=== PATIENT | male | born 1945 | race Caucasian/White ===

== ENCOUNTER 2017-03-07 08:18 | Emergency (ER) | payer MEDICARE, OTHER ==
[~2017-03-07] VITALS: Ht 185.4 cm; Wt 83.5 kg
[~2017-03-07 08:18] MED LIST: AMLO5TAB4 PO; ASPI-482 PO; CIPR500T PO; LISI-334 PO; MECL12.5 PO; RANI150T6 PO
[2017-03-07] MEDS ORDERED: ONDANSETRON ODT 4 MG TAB.RAPDIS. PO ONE (08:45)
--- NOTE | 2017-03-07 08:52 | PHYS DOC ---
Past Medical History Past Medical History: Hypertension, Other Additional Past Medical Histor: ENLARGED PROSTATE Past Surgical History: No Surgical History Alcohol Use: None Drug Use: None Adult General Chief Complaint Chief Complaint: DIZZY/LIGHT HEADED HPI HPI Patient is a 71 year old male presents to the emergency department with a history of labyrinthitis. Patient states he bent down 2-3 days ago and became dizzy. He states he has been taking meclizine with some relief although now he has become nauseated and vomited twice. He denies fever, chills, chest pain or discomfort. Review of Systems Review of Systems Constitutional: Denies fever or chills [] Eyes: Denies change in visual acuity, redness, or eye pain [] HENT: Denies nasal congestion or sore throat [] Respiratory: Denies cough or shortness of breath [] Cardiovascular: No additional information not addressed in HPI [] GI: Denies abdominal pain, bloody stools or diarrhea C/o nausea and vomiting : Denies dysuria or hematuria [] Musculoskeletal: Denies back pain or joint pain [] Integument: Denies rash or skin lesions [] Neurologic: Denies headache, focal weakness or sensory changes. C/o dizziness Endocrine: Denies polyuria or polydipsia [] Current Medications Current Medications Current Medications Medications (Trade) Dose Ordered Sig/Francisco Start Time Stop Time Status Last Admin Dose Admin Ondansetron HCl (Zofran Odt) 4 mg 1X ONCE 03/07/17 08:45 03/07/17 08:46 DC Allergies Allergies Allergies Coded Allergies Type Severity Reaction Last Updated Verified No Known Drug Allergies 05/18/15 No Physical Exam Physical Exam Constitutional: Well developed, well nourished, no acute distress, non-toxic appearance. [] HENT: Normocephalic, atraumatic, bilateral external ears normal, oropharynx moist, no oral exudates, nose normal. [] Eyes: PERRLA, EOMI, conjunctiva normal, no discharge. [] Neck: Normal range of motion, no tenderness, supple, no stridor. [] Cardiovascular:Heart rate regular rhythm, no murmur [] Lungs & Thorax: Bilateral breath sounds clear to auscultation [] Abdomen: Bowel sounds normal, soft, no tenderness, no masses, no pulsatile masses. [] Skin: Warm, dry, no erythema, no rash. [] Back: No tenderness Extremities: No tenderness, no cyanosis, no clubbing, ROM intact, no edema. [] Neurologic: Alert and oriented X 3, normal motor function, normal sensory function, no focal deficits noted. Cranial nerve II-XII patient with unsteadiness noted. Psychologic: Affect normal, judgement normal, mood normal. [] Current Patient Data Vital Signs Vital Signs Date Time Temp Pulse Resp B/P (MAP) Pulse Ox O2 Delivery O2 Flow Rate FiO2 03/07/17 08:29 97.6 58 16 156/82 (106) 97 Room Air 97.6 Lab Values Laboratory Tests Test 03/07/17 08:45 White Blood Count 9.8 x10^3/uL (4.0-11.0) Red Blood Count 5.27 x10^6/uL (4.30-5.70) Hemoglobin 16.3 g/dL (13.0-17.5) Hematocrit 47.2 % (39.0-53.0) Mean Corpuscular Volume 90 fL (79-100) Mean Corpuscular Hemoglobin 31 pg (25-35) Mean Corpuscular Hemoglobin Concent 35 g/dL (31-37) Red Cell Distribution Width 14.3 % (11.5-14.5) Platelet Count 247 x10^3/uL (140-400) Neutrophils (%) (Auto) 71 % (31-73) Lymphocytes (%) (Auto) 20 % (24-48) L Monocytes (%) (Auto) 7 % (0-9) Eosinophils (%) (Auto) 2 % (0-3) Basophils (%) (Auto) 0 % (0-3) Neutrophils # (Auto) 6.9 x10^3uL (1.8-7.7) Lymphocytes # (Auto) 1.9 x10^3/uL (1.0-4.8) Monocytes # (Auto) 0.7 x10^3/uL (0.0-1.1) Eosinophils # (Auto) 0.2 x10^3/uL (0.0-0.7) Basophils # (Auto) 0.0 x10^3/uL (0.0-0.2) Sodium Level 138 mmol/L (136-145) Potassium Level 4.2 mmol/L (3.5-5.1) Chloride Level 101 mmol/L (98-107) Carbon Dioxide Level 30 mmol/L (21-32) Anion Gap 7 (6-14) Blood Urea Nitrogen 20 mg/dL (8-26) Creatinine 1.0 mg/dL (0.7-1.3) Estimated GFR (Cockcroft-Gault) 73.2 BUN/Creatinine Ratio 20 (6-20) Glucose Level 109 mg/dL (70-99) H Calcium Level 8.9 mg/dL (8.5-10.1) Total Bilirubin 1.0 mg/dL (0.2-1.0) Aspartate Amino Transferase (AST) 24 U/L (15-37) Alanine Aminotransferase (ALT) 30 U/L (16-63) Alkaline Phosphatase 82 U/L (46-116) Troponin I Quantitative < 0.017 ng/mL (0.000-0.055) Total Protein 7.8 g/dL (6.4-8.2) Albumin 3.7 g/dL (3.4-5.0) Albumin/Globulin Ratio 0.9 (1.0-1.7) L Laboratory Tests 03/07/17 08:45 Laboratory Tests 03/07/17 08:45 EKG EKG EKG completed at 0835 HR 57 with SR noted per Dr Blanco no STEMI noted[] Radiology/Procedures Radiology/Procedures [facility] [address] [place] [address] IMAGING REPORT Signed PATIENT: RASHIDA NAIDU ACCOUNT: [id number] : 1945 LOCATION: ER AGE: 71 SEX: M EXAM STATUS: PRE ER ORD. PHYSICIAN: GT CARVAJAL APRN REASON: dizziness PROCEDURE: CT HEAD WO CONTRAST CT of the head without contrast, 03/07/2017: History: Dizziness Comparison is made to a study from 04/28/2015. There is mild cerebral atrophy. The ventricles are within normal limits in size. There is no shift of the midline structures. There is no evidence of acute intracranial hemorrhage or mass effect. There are several faint deep white matter lucencies bilaterally compatible with chronic ischemic change. Again noted is poor aeration of the right mastoid air cells with a small bony defect, presumably on a postsurgical basis. There is only minimal opacification of the inferior aspect of the left mastoid sinus. IMPRESSION: No acute intracranial abnormality is detected. PQRS Compliance Statement: One or more of the following individualized dose reduction techniques were utilized for this examination: 1. Automated exposure control 2. Adjustment of the mA and/or kV according to patient size 3. Use of iterative reconstruction technique DICTATED and SIGNED BY: EVERETT LAWRENEC MD DATE: 03/07/1707 CC: GT CARVAJAL APRN; BROOKE FORD ~ [] Course & Med Decision Making Course & Med Decision Making Pertinent Labs and Imaging studies reviewed. (See chart for details) CBC, CMP, troponin and EKG normal, CT scan normal. These results provided with patient. Patient states his dizziness and nausea feeling is much better. Patient states, "Can I leave here and go eat?" Patient will be discharged home in stable condition, he will be provided with prescription of Zofran. He will continue with the meclizine. Recommendation to followup with primary care provider in 3-5 days. Signs and symptoms to return to the emergency department has been provided. Patient agrees with discharge instructions, treatment regimen and followup recommendations. Patient with redness to the right upper back that is a dime size with no drainage or discharge noted. Recommended keeping the area clean and dry and apply antibiotic ointment over the site twice a day. [] Dragon Disclaimer Dragon Disclaimer This electronic medical record was generated, in whole or in part, using a voice recognition dictation system. Departure Departure Impression: Primary Impression: Acute labyrinthitis Disposition: 01 HOME, SELF-CARE Condition: STABLE Referrals: BROOKE FORD (PCP) Patient Instructions: Labyrinthitis (Inner Ear Inflammation)-Brief Additional Instructions: Activity as tolerated Medication as prescribed Drink plenty of fluids Followup with your primary care provider in 3-5 days Return to emergency department as needed for signs and symptoms that become worse. Scripts Ondansetron (ZOFRAN ODT) 4 Mg Tab.rapdis 1 TAB SL Q8HRS, #10 TAB Prov: GT CARVAJAL APRN 03/07/17 GT CARVAJAL APRN Mar 07, 2017 08:52
[2017-03-07 09:06] LABS: BASO % 0 % (0-3); EOS % 2 % (0-3); HEMATOCRIT 47.2 % (39.0-53.0); HEMOGLOBIN 16.3 g/dL (13.0-17.5); LYMPH # 1.9 x10^3/uL (1.0-4.8); LYMPH % 20 % (24-48); MEAN CORPUSCULAR HEMOGLOBIN 31 pg (25-35); MEAN CORPUSCULAR HGB CONC 35 g/dL (31-37); MEAN CORPUSCULAR VOLUME 90 fL (79-100); MONO % 7 % (0-9); NEUT % 71 % (31-73); PLATELET COUNT 247 x10^3/uL (140-400); RED BLOOD COUNT 5.27 x10^6/uL (4.30-5.70); RED CELL DISTRIBUTION WIDTH 14.3 % (11.5-14.5); WHITE BLOOD COUNT 9.8 x10^3/uL (4.0-11.0)
[2017-03-07 09:07] LABS: CALCIUM 8.9 mg/dL (8.5-10.1); GFR 73.2; POTASSIUM 4.2 mmol/L (3.5-5.1)
[2017-03-07 09:12] LABS: ALBUMIN 3.7 g/dL (3.4-5.0); ALBUMIN/GLOBULIN RATIO 0.9 (1.0-1.7); TOTAL PROTEIN 7.8 g/dL (6.4-8.2)
--- NOTE | 2017-03-07 09:14 | RAD ---
CT of the head without contrast, 03/07/2017: History: Dizziness Comparison is made to a study from 04/28/2015. There is mild cerebral atrophy. The ventricles are within normal limits in size. There is no shift of the midline structures. There is no evidence of acute intracranial hemorrhage or mass effect. There are several faint deep white matter lucencies bilaterally compatible with chronic ischemic change. Again noted is poor aeration of the right mastoid air cells with a small bony defect, presumably on a postsurgical basis. There is only minimal opacification of the inferior aspect of the left mastoid sinus. IMPRESSION: No acute intracranial abnormality is detected. PQRS Compliance Statement: One or more of the following individualized dose reduction techniques were utilized for this examination: 1. Automated exposure control 2. Adjustment of the mA and/or kV according to patient size 3. Use of iterative reconstruction technique
[2017-03-07 09:30] VITALS: BP 133/95
[2017-03-07] MEDS ORDERED: ONDA4TAB10 SL (09:37)
--- NOTE | 2017-03-07 11:02 | EKG ---
[facility] [address] [place] [address] Test Date: 2017-03-07 Test Time: 08:35:53 Pat Name: RASHIDA NAIDU Department: Room: Gender: M [employer] Machine Operator: : 1945 Requested By: GT CARVAJAL Order Number: [id number] Reading MD: Cynthia Ogden Measurements Intervals [place] Rate: 57 P: 42 MI: 186 QRS: 1 QRSD: 96 T: 2 QT: 388 QTc: 380 Interpretive Statements SINUS RHYTHM QRS(T) CONTOUR ABNORMALITY CONSISTENT WITH INFERIOR INFARCT AGE UNDETERMINED RI6.01 Unconfirmed report Compared to ECG 05/16/2015 08:51:08 Myocardial infarct finding now present Electronically Signed On 03-09-2017 22:34:49 CDT by Cynthia Ogden
== END 2017-03-07 09:57 | disposition home or self-care (01) ==
LOC: ER 08:18
DX: H83.09 Labyrinthitis, unspecified ear (principal); I10 Essential (primary) hypertension; N40.0 Benign prostatic hyperplasia without lower urinary tract symptoms
CPT/HCPCS: 36415; 70450; 80053; 84484; 85027; 93005; 99285; Q0162

== ENCOUNTER 2019-02-23 09:24 | Emergency (ER) | payer MEDICARE, OTHER ==
[~2019-02-23] VITALS: Ht 185.4 cm; Wt 83.5 kg
[~2019-02-23 09:24] MED LIST changes: +ONDA4TAB10 SL; +RANI-376 PO; -RANI150T6 PO
[2019-02-23] MEDS ORDERED: TRAZ-86 (09:58)
[2019-02-23] MEDS ORDERED: MELO7.5T29 (09:58)
[2019-02-23] MEDS ORDERED: TAMS0.4C97 (09:58)
[2019-02-23] MEDS ORDERED: LISI10TA2 (09:58)
[2019-02-23] MEDS ORDERED: PENI500T PO (10:14)
[2019-02-23] MEDS ORDERED: TRAM50TA PO (10:14)
[2019-02-23 10:25] VITALS: BP 153/61
--- NOTE | 2019-02-23 10:28 | PHYS DOC ---
Past Medical History Past Medical History: Arthritis, Hypertension, Other Additional Past Medical Histor: ENLARGED PROSTATE; hearing impairment Past Surgical History: Other Additional Past Surgical Histo: hernia; right ear Alcohol Use: None Drug Use: None Adult General Chief Complaint Chief Complaint: FACE PROBLEM HPI HPI Patient is a 73 year old male who presents with facial pain, located over left mandible the past 2-3 months. Patient denies injury to, trauma to this region. Currently denies sinus pain, tenderness or dental pain. History of dental caries. Patient states he spoke with his PCP regarding his symptoms 2 weeks ago but does not recall the outcome of conversation. Patient takes meloxicam daily for osteoarthritis. No other acute symptoms or complaints. [] Review of Systems Review of Systems Review symptoms as per history of present illness. All other review symptoms are negative. All other systems were reviewed and found to be within normal limits, except as documented in this note. Allergies Allergies Allergies Coded Allergies Type Severity Reaction Last Updated Verified No Known Drug Allergies 05/18/15 No Physical Exam Physical Exam Constitutional: Well developed, well nourished, no acute distress, non-toxic appearance. [] HENT: Normocephalic, maxillary cheek pain, tenderness, no swelling, rash, or TMJ tenderness, bilateral external ears normal, oropharynx moist, multiple missing teeth with extensive dental caries, no gingival swelling or obvious soft tissue infections nose normal. [] Eyes: PERRLA, EOMI, conjunctiva normal, no discharge. [] Neck: Normal range of motion, no tenderness, supple, no stridor. [] Cardiovascular:Heart rate regular rhythm, no murmur [] Lungs & Thorax: Bilateral breath sounds clear to auscultation [] Neurologic: Alert and oriented X 3, normal motor function, normal sensory function, no focal deficits noted. [] Psychologic: Affect normal, judgement normal, mood normal. [] Current Patient Data Vital Signs Vital Signs Date Time Temp Pulse Resp B/P (MAP) Pulse Ox O2 Delivery O2 Flow Rate FiO2 02/23/19 09:35 97.5 66 20 177/87 (117) 94 Room Air 97.5 EKG EKG [] Radiology/Procedures Radiology/Procedures [] Course & Med Decision Making Course & Med Decision Making Pertinent Labs and Imaging studies reviewed. (See chart for details) [Patient's pain addressed, will place on antibiotics pain medications with instructions to follow-up with ECP early next week. Return precautions reviewed] Seda Disclaimer Seda Disclaimer This electronic medical record was generated, in whole or in part, using a voice recognition dictation system. Departure Departure Impression: Primary Impression: Facial neuralgia Disposition: HOME, SELF-CARE Condition: GOOD Additional Instructions: Please take new medications as directed. Follow up with your PCP in the next week for re-evaluation. Scripts Penicillin V Potassium (PENICILLIN V POTASSIUM) 500 Mg Tablet 1 TAB PO TID, #30 TAB Prov: MILLICENT LOUIS DO 02/23/19 Tramadol Hcl (TRAMADOL HCL) 50 Mg Tablet 50 MG PO DAILY PRN for PAIN, #10 TAB 0 Refills Prov: MILLICENT LOUIS DO 02/23/19 MILLICENT LOUIS DO February 23, 2019 10:28
== END 2019-02-23 10:25 | disposition home or self-care (01) ==
LOC: ER 09:24
DX: G50.0 Trigeminal neuralgia (principal); I10 Essential (primary) hypertension
CPT/HCPCS: 99283

== ENCOUNTER 2020-10-14 11:27 | Emergency (ER) | payer MEDICARE ==
[~2020-10-14] VITALS: Ht 185.4 cm; Wt 86.0 kg
[~2020-10-14 11:27] MED LIST changes: +LISI10TA2; +MELO7.5T29; +PENI500T PO; +TAMS0.4C97; +TRAM50TA PO; +TRAZ-123
[2020-10-14] MEDS ORDERED: ONDANSETRON PF 4 MG/2 ML VIAL. IVP ONE (12:00)
[2020-10-14] MEDS ORDERED: IV NORMAL SALINE 1000ML BAG 1,000 ML IV SCH (12:00)
[2020-10-14 12:03] VITALS: BP 136/82
--- NOTE | 2020-10-14 12:08 | PHYS DOC ---
Past Medical History Past Medical History: Arthritis, Hypertension, Other Additional Past Medical Histor: ENLARGED PROSTATE; hearing impairment Past Surgical History: Other Additional Past Surgical Histo: hernia; right ear Smoking Status: Never Smoker Alcohol Use: None Drug Use: None General Adult EDM: Chief Complaint: NAUSEA/VOMITING/DIARRHA HPI: HPI: Patient is a 75 year old male who presented to ER for evaluation of nausea vomiting and diarrhea since yesterday. Patient also having abdominal cramping. Patient denies any fever, no chest pain, no trouble breathing. Patient denies any antibiotic taken recently. Patient is not sure if he HAS been exposed to anybody who tested positive for COVID-19. Patient denies any blood in his stool. Review of Systems: Review of Systems: Constitutional: Denies fever or chills. [] Eyes: Denies change in visual acuity. [] HENT: Denies nasal congestion or sore throat. [] Respiratory: Denies cough or shortness of breath. [] Cardiovascular: Denies chest pain or edema. [] GI: Positive for nausea vomiting, diarrhea, abdominal pain : Denies dysuria. [] Musculoskeletal: Denies back pain or joint pain. [] Integument: Denies rash. [] Neurologic: Denies headache, focal weakness or sensory changes. [] Endocrine: Denies polyuria or polydipsia. [] Lymphatic: Denies swollen glands. [] Psychiatric: Denies depression or anxiety. [] Heart Score: Risk Factors: Risk Factors: DM, Current or recent (<one month) smoker, HTN, HLP, family history of CAD, obesity. Risk Scores: Score 0 - 3: 2.5% MACE over next 6 weeks - Discharge Home Score 4 - 6: 20.3% MACE over next 6 weeks - Admit for Clinical Observation Score 7 - 10: 72.7% MACE over next 6 weeks - Early Invasive Strategies Current Medications: Current Medications Medications (Trade) Dose Ordered Sig/Francisco Start Time Stop Time Status Last Admin Dose Admin Ondansetron HCl (Zofran) 4 mg 1X ONCE 10/14/20 12:00 10/14/20 12:01 UNV Sodium Chloride 1,000 ml @ 1,000 mls/hr Q1H 10/14/20 12:00 10/14/20 12:59 UNV Allergies: Allergies: Allergies Coded Allergies Type Severity Reaction Last Updated Verified No Known Drug Allergies 05/18/15 No Physical Exam: PE: Constitutional: Well developed, well nourished, no acute distress, non-toxic appearance. [] HENT: Normocephalic, atraumatic, bilateral external ears normal, oropharynx moist, no oral exudates, nose normal. [] Eyes: PERRLA, EOMI, conjunctiva normal, no discharge. [] Neck: Normal range of motion, no tenderness, supple, no stridor. [] Cardiovascular:Heart rate regular rhythm, no murmur [] Lungs & Thorax: Bilateral breath sounds clear to auscultation [] Abdomen: Bowel sounds normal, soft, no tenderness, no masses, no pulsatile masses. [] Skin: Warm, dry, no erythema, no rash. [] Back: No tenderness, no CVA tenderness. [] Extremities: No tenderness, no cyanosis, no clubbing, ROM intact, no edema. [] Neurologic: Alert and oriented X 3, normal motor function, normal sensory function, no focal deficits noted. [] Psychologic: Affect normal, judgement normal, mood normal. [] Current Patient Data: Labs: Laboratory Tests Test 10/14/20 12:20 10/14/20 13:30 White Blood Count 15.0 x10^3/uL Red Blood Count 5.17 x10^6/uL Hemoglobin 16.0 g/dL Hematocrit 47.2 % Mean Corpuscular Volume 91 fL Mean Corpuscular Hemoglobin 31 pg Mean Corpuscular Hemoglobin Concent 34 g/dL Red Cell Distribution Width 13.9 % Platelet Count 239 x10^3/uL Neutrophils (%) (Auto) 94 % Lymphocytes (%) (Auto) 3 % Monocytes (%) (Auto) 3 % Eosinophils (%) (Auto) 0 % Basophils (%) (Auto) 0 % Neutrophils # (Auto) 14.1 x10^3/uL Lymphocytes # (Auto) 0.4 x10^3/uL Monocytes # (Auto) 0.4 x10^3/uL Eosinophils # (Auto) 0.0 x10^3/uL Basophils # (Auto) 0.0 x10^3/uL Segmented Neutrophils % 86 % Band Neutrophils % 6 % Lymphocytes % 7 % Monocytes % 1 % Platelet Estimate Adequate Sodium Level 139 mmol/L Potassium Level 4.5 mmol/L Chloride Level 104 mmol/L Carbon Dioxide Level 26 mmol/L Anion Gap 9 Blood Urea Nitrogen 24 mg/dL Creatinine 1.2 mg/dL Estimated GFR (Cockcroft-Gault) 58.7 BUN/Creatinine Ratio 20 Glucose Level 124 mg/dL Calcium Level 8.7 mg/dL Magnesium Level 1.8 mg/dL Total Bilirubin 1.0 mg/dL Aspartate Amino Transf (AST/SGOT) 24 U/L Alanine Aminotransferase (ALT/SGPT) 33 U/L Alkaline Phosphatase 94 U/L Total Protein 7.7 g/dL Albumin 3.6 g/dL Albumin/Globulin Ratio 0.9 Lipase 59 U/L Urine Collection Type Unknown Urine Color Yellow Urine Clarity Clear Urine pH 6.5 Urine Specific [place] 1.020 Urine Protein Negative mg/dL Urine Glucose (UA) Negative mg/dL Urine Ketones (Stick) Negative mg/dL Urine Blood Negative Urine Nitrite Negative Urine Bilirubin Negative Urine Urobilinogen Dipstick 0.2 mg/dL Urine Leukocyte Esterase Negative Urine RBC Occ /HPF Urine WBC Occ /HPF Urine Squamous Epithelial Cells Few /LPF Urine Bacteria 0 /HPF Urine Mucus Mod /LPF Current Medications Medications (Trade) Dose Ordered Sig/Francisco Route PRN Reason Start Time Stop Time Status Last Admin Dose Admin Sodium Chloride 1,000 ml @ 1,000 mls/hr Q1H IV 10/14/20 12:00 10/14/20 12:59 DC 10/14/20 12:22 Ondansetron HCl (Zofran) 4 mg 1X ONCE IVP 10/14/20 12:00 10/14/20 12:03 DC 10/14/20 12:00 Iohexol (Omnipaque 300 Mg/ml) 75 ml 1X ONCE IV 10/14/20 13:30 10/14/20 13:32 DC 10/14/20 13:30 Info (CONTRAST GIVEN -- Rx MONITORING) 1 each PRN DAILY PRN MC SEE COMMENTS 10/14/20 13:45 10/16/20 13:44 Ketorolac Tromethamine (Toradol 30mg Vial) 30 mg 1X ONCE IVP 10/14/20 15:00 10/14/20 15:01 DC 10/14/20 15:12 Metoclopramide HCl (Reglan Vial) 10 mg 1X ONCE IVP 10/14/20 15:00 10/14/20 15:01 DC 10/14/20 15:10 EKG: EKG: [] Radiology/Procedures: Radiology/Procedures: [][facility] [address] [place] [address] IMAGING REPORT Signed PATIENT: MARTHA NAIDU ACCOUNT: [id number] : 1945 LOCATION: ER AGE: 75 SEX: M EXAM STATUS: REG ER ORD. PHYSICIAN: BALBIR PETERSON DO REASON: abdominal pain, N/V/D PROCEDURE: CT ABD PELV W/ IV CONTRST ONLY EXAM: CT Abdomen and Pelvis with IV contrast INDICATION: Reason: abdominal pain, N/V/D / Spl. Instructions: [id number] 75ML / History: TECHNIQUE: Multi-detector row CT images were acquired from the lung bases through the abdomen and pelvis with the use of IV contrast. Sagittal and coronal images were acquired from the transaxial data. All CT scans performed at this facility utilize dose optimization techniques as appropriate to the exam, including the following: Automated exposure control and adjustment of the mA and/or KV according to patient size (this includes techniques or standardized protocols for targeted exams where dose is indication/reason for exam). IV CONTRAST: Administered ORAL CONTRAST: Administered COMPARISON: Obstructive series of 01/06/2015 FINDINGS: LOWER CHEST: Lower lobe right greater than left dependent subpleural opacities are present and could be atelectatic changes. LIVER: Unremarkable BILIARY SYSTEM: Gallbladder is unremarkable. Bile ducts are not dilated. PANCREAS: Unremarkable SPLEEN: Unremarkable ADRENALS: Unremarkable KIDNEYS & URETERS: Left grade 1 hydronephrosis is not associated with hydroureter or with stones in the renal pelvis or ureter. Kidneys and ureters otherwise unremarkable. BLADDER: Multiple layering calcifications in the urinary bladder are evident. REPRODUCTIVE ORGANS: Enlarged prostate measures 6 cm in transverse diameter. GASTROINTESTINAL: A loop of transverse colon is interposed over the liver. There are no findings of bowel obstruction, perforation or acute inflammation. Appendix is not well seen but there are no findings of acute appendicitis. MESENTERY/PERITONEUM/RETROPERITONEUM: Near the bilateral inguinal canals are ovoid soft tissue densities measuring 3.0 x 2.5 cm on the left and 2.4 x 2.0 cm on the right. These could reflect the sequelae of previous inguinal hernia repairs. VASCULAR: Unremarkable LYMPH NODES: No adenopathy OSSEOUS & SOFT TISSUES: Unremarkable IMPRESSION: No specific cause for abdominal pain is identified. Correlate for any history of recent stone passage. Electronically signed by: Estephanie Crum MD (10/14/2020 2:41 PM) [id number] DICTATED and SIGNED BY: ESTEPHANIE CRUM MD DATE: 10/14/20 [id number] Course & Med Decision Making: Course & Med Decision Making Pertinent Labs and Imaging studies reviewed. (See chart for details) Patient is a 75-year-old male who was evaluated in ER due to nausea vomiting, diarrhea, abdominal cramping. Patient was dehydrated, he was given IV fluid, he felt much better in the ER. Patient will be discharged home. Dragon Disclaimer: Dragon Disclaimer: This electronic medical record was generated, in whole or in part, using a voice recognition dictation system. Departure Departure Impression: Primary Impression: Gastroenteritis Disposition: 01 DC HOME SELF CARE/HOMELESS Condition: IMPROVED Referrals: DARRIUS VERONICA MD (PCP) follow up with your doctor this week for reevaluation. Patient Instructions: Viral Gastroenteritis Additional Instructions: Thank you for visiting our Emergency Department. We appreciate you trusting us with your care. If any additional problems come up don't hesitate to return to visit us. Please follow up with your primary care provider so they can plan additional care if needed and know about the problem that you had. If symptoms worsen come back to the Emergency Department. Any concerning symptoms that start such as chest pain, shortness of air, weakness or numbness on one side of the body, running high fevers or any other concerning symptoms return to the ER. Scripts Metoclopramide Hcl (REGLAN) 10 Mg Tablet 1 TAB PO QID PRN for NAUSEA for 5 Days, #20 TAB 0 Refills before food and bedtime Prov: BALBIR PETERSON DO 10/14/20 Metronidazole (FLAGYL) 500 Mg Tablet 500 MG PO TID for 7 Days, #21 TAB Prov: BALBIR PETERSON DO 10/14/20 BALBIR PETERSON DO Oct 14, 2020 12:08
[2020-10-14 12:31] LABS: BASO % 0 % (0-3); EOS % 0 % (0-3); HEMATOCRIT 47.2 % (39.0-53.0); LYMPH # 0.4 x10^3/uL (1.0-4.8); LYMPH % 3 % (24-48); MEAN CORPUSCULAR HEMOGLOBIN 31 pg (25-35); MEAN CORPUSCULAR HGB CONC 34 g/dL (31-37); MEAN CORPUSCULAR VOLUME 91 fL (79-100); MONO # 0.4 x10^3/uL (0.0-1.1); MONO % 3 % (0-9); NEUT # 14.1 x10^3/uL (1.8-7.7); NEUT % 94 % (31-73); PLATELET COUNT 239 x10^3/uL (140-400); RED BLOOD COUNT 5.17 x10^6/uL (4.30-5.70); RED CELL DISTRIBUTION WIDTH 13.9 % (11.5-14.5)
[2020-10-14 12:40] LABS: CALCIUM 8.7 mg/dL (8.5-10.1); CREATININE 1.2 mg/dL (0.7-1.3); GFR 58.7; POTASSIUM 4.5 mmol/L (3.5-5.1)
[2020-10-14 12:46] LABS: ALBUMIN 3.6 g/dL (3.4-5.0); ALBUMIN/GLOBULIN RATIO 0.9 (1.0-1.7); MAGNESIUM 1.8 mg/dL (1.8-2.4); TOTAL PROTEIN 7.7 g/dL (6.4-8.2)
[2020-10-14 13:22] LABS: % BANDS 6 % (0-9); % LYMPHS 7 % (24-48); % MONOS 1 % (0-10); % SEGS 86 % (35-66)
[2020-10-14 13:23] LABS: PLT ESTIMATE ADEQUATE (ADEQUATE)
[2020-10-14] MEDS ORDERED: IOHEXOL 300 MG/ML 100ML VIAL. IV ONE (13:30)
[2020-10-14 13:45] LABS: BILIRUBIN,URINE NEGATIVE (NEG); CLARITY,URINE CLEAR; COLOR,URINE YELLOW; NITRITE,URINE NEGATIVE (NEG); PH,URINE 6.5 (<5.0-8.0); PROTEIN,URINE NEGATIVE (NEG-TRACE); UROBILINOGEN,URINE 0.2 mg/dL (0.2 mg/dL)
[2020-10-14] MEDS ORDERED: CONTRAST GIVEN. MC PRN (13:45)
[2020-10-14 13:53] LABS: BACTERIA,URINE 0 /HPF (0-FEW); RBC,URINE OCC /HPF (0-2); WBC,URINE OCC /HPF (0-4)
--- NOTE | 2020-10-14 14:44 | RAD ---
EXAM: CT Abdomen and Pelvis with IV contrast INDICATION: Reason: abdominal pain, N/V/D / Spl. Instructions: [id number] 75ML / History: TECHNIQUE: Multi-detector row CT images were acquired from the lung bases through the abdomen and pel vis with the use of IV contrast. Sagittal and coronal images were acquired from the transaxial data. All CT scans performed at this facility utilize dose optimization techniques as appropriate to the ex am, including the following: Automated exposure control and adjustment of the mA and/or KV according to patient size (this includes techniques or standardized protocols for targeted exams where dose is indication/reason for exam). IV CONTRAST: Administered ORAL CONTRAST: Administered COMPARISON: Obstructive series of 01/06/2015 FINDINGS: LOWER CHEST: Lower lobe right greater than left dependent subpleural opacities are present and could be atelectatic changes. LIVER: Unremarkable BILIARY SYSTEM: Gallbladder is unremarkable. Bile ducts are not dilated. PANCREAS: Unremarkable SPLEEN: Unremarkable ADRENALS: Unremarkable KIDNEYS & URETERS: Left grade 1 hydronephrosis is not associated with hydroureter or with stones in the renal pelvis or ureter. Kidneys and ureters otherwise unremarkable. BLADDER: Multiple layering calcifications in the urinary bladder are evident. REPRODUCTIVE ORGANS: Enlarged prostate measures 6 cm in transverse diameter. GASTROINTESTINAL: A loop of transverse colon is interposed over the liver. There are no findings of b owel obstruction, perforation or acute inflammation. Appendix is not well seen but there are no findi ngs of acute appendicitis. MESENTERY/PERITONEUM/RETROPERITONEUM: Near the bilateral inguinal canals are ovoid soft tissue densit ies measuring 3.0 x 2.5 cm on the left and 2.4 x 2.0 cm on the right. These could reflect the sequela e of previous inguinal hernia repairs. VASCULAR: Unremarkable LYMPH NODES: No adenopathy OSSEOUS & SOFT TISSUES: Unremarkable IMPRESSION: No specific cause for abdominal pain is identified. Correlate for any history of recent stone passage . Electronically signed by: Brenda Crum MD (10/14/2020 2:41 PM) [id number]
[2020-10-14] MEDS ORDERED: KETOROLAC 30 MG/ML VIAL. IVP ONE (15:00)
[2020-10-14] MEDS ORDERED: METOCLOPRAMIDE HCL 10 MG/2 ML VIAL. IVP ONE (15:00)
[2020-10-14] MEDS ORDERED: METO10TA81 PO (16:31)
[2020-10-14] MEDS ORDERED: METR500T PO (16:31)
== END 2020-10-14 16:30 | disposition home or self-care (01) ==
LOC: ER 11:27
DX: K52.89 Other specified noninfective gastroenteritis and colitis (principal); R11.2 Nausea with vomiting, unspecified; R10.9 Unspecified abdominal pain; M19.90 Unspecified osteoarthritis, unspecified site; I10 Essential (primary) hypertension; Z98.890 Other specified postprocedural states
CPT/HCPCS: 36415; 74177; 80053; 81001; 83690; 83735; 85007; 85025; 96361; 96374; 96375; 99285; J1885; J2405; J2765; J7030; Q9967

== ENCOUNTER → 2020-10-15 | Outpatient (CLI) | payer OTHER ==
[2020-10-14 12:03] VITALS: BP 136/82
[~2020-10-15] MED LIST changes: +METO10TA81 PO; +METR500T PO
--- NOTE | 2020-10-15 12:23 | PDOC1 ---
INITIAL PAIN CONSULT DATE OF SERVICE: DOS: DATE: 10/15/20 TIME: 12:16 CHIEF COMPLAINT: Chief Complaint: Low back and left lower extremity pain HISTORY OF PRESENT ILLNESS: 75-year-old male presents history of pain in the low back and left lower extremity for about 2 years not the result of any specific injury or accident he is aware but is been getting worse with time and walking especially noticeable with increased pain radiating from the low back and the left posterior gluteus posterior lateral thigh lateral anterior thigh anteromedial thigh medial lower leg into the ankle on the left side. Patient reports that sharp tingling radiating in the left leg intermittent intensity but always present worse with walking and standing changing positions getting up from seated position patient reports is better with sitting down or laying down does not awaken her from sleep does not affect his bowel bladder control does not affect his ability to walk is not use any assistive devices to ambulate. Patient reports he is done some exercises on his own which his primary care physician showed him with some physical therapy instruction but no formal physical therapy at this time. Patient is doing the exercises daily and walking daily and also climbs 2 flights of stairs at his home multiple times during the day to try and stay in shape as well. Patient's been taking [id number] ibuprofen as well as Tylenol which does help the pain but only by about 20%. Patient cries pain is sharp and tingling in the back also radiating dull aching and shooting in the left leg patient rates his disability rating 0-10 10 being the worst as a 3 with family responsibilities for with social activity 6 with recreational activities and 3 with self-care activities 0 with occupation sexual behavior life support activities. Patient did have an MRI scan of the lumbar spine showing levoscoliosis of the lumbar distribution with degenerative changes and multilevel spinal canal neuroforaminal stenosis most pronounced at L3-4 and L4-5 with moderate spinal canal stenosis and moderate to severe right and moderate to severe left neuroforaminal stenosis at the L3-4 and L4-5 levels. Patient reports no loss of motor function no bowel or bladder incontinence. PAST MEDICAL HISTORY: PMH: Hearing loss, cataracts, benign prostatic hypertrophy PREVIOUS SURGERIES: Past Surgical Hx: Inguinal hernia repair CURRENT MEDICATIONS: Current Meds: Active Scripts Medications Dose Route/Sig Max Daily Dose Days Date Category Dose Instructions Reglan (Metoclopramide Hcl) 10 Mg Tablet 1 Tab PO QID PRN 5 10/14/20 Rx before food and bedtime Flagyl (Metronidazole) 500 Mg Tablet 500 Mg PO TID 7 10/14/20 Rx Penicillin V Potassium 500 Mg Tablet 1 Tab PO TID 02/23/19 Rx Tramadol Hcl 50 Mg Tablet 50 Mg PO DAILY PRN 02/23/19 Rx Trazodone Hcl 100 Mg Tablet 02/23/19 Reported Lisinopril 10 Mg Tablet 02/23/19 Reported Flomax (Tamsulosin Hcl) 0.4 Mg Cap.er.24h 02/23/19 Reported Meloxicam 7.5 Mg Tablet 02/23/19 Reported Zofran Odt (Ondansetron) 4 Mg Tab.rapdis 1 Tab SL Q8HRS 03/07/17 Rx Antivert (Meclizine Hcl) 12.5 Mg Tablet 25 Mg PO PRN Q6HRS PRN 05/20/15 Rx Zantac (Ranitidine Hcl) 150 Mg Tablet 150 Mg PO DAILY 05/16/15 Reported Norvasc (Amlodipine Besylate) 5 Mg Tablet 5 Mg PO DAILY 05/16/15 Reported Ciprofloxacin Hcl 500 Mg Tablet 1 Tab PO BID 05/16/15 Reported Lisinopril 20 Mg Tablet 10 Mg PO DAILY 04/23/14 Reported ALLERGIES; Allergies: Coded Allergies: No Known Drug Allergies (Unverified , 05/18/15) FAMILY HISTORY: Family Hx: No major medical problems or conditions that he lists SOCIAL HISTORY: Social Hx: Patient does not drink alcohol does not smoke does not use any illegal illicit recreational drugs is lives with his spouse lives locally in [facility] and is currently retired. REVIEW OF SYSTEMS: ROS: Positive for those items mentioned in history of present illness, all systems are reviewed, otherwise negative, is complete full and well-documented on patient's chart. PHYSICAL EXAM: VS: Blood pressure is 145/86 pulse 77 respirations 18 temperature 97.1 F height is 6 foot 1 his weight is 199 pounds PE: PHYSICAL EXAMINATION: GENERAL: The patient is awake, alert, oriented, appropriate, very pleasant demeanor HEENT: Shows normocephalic, atraumatic. Extraocular movements are intact and symmetrical. Oral cavity: Mucous membranes moist and pink. NECK: Shows anterior throat supple without palpable lymphadenopathy noted. Swallow reflex symmetrical. CHEST: Shows normal on inspection. Breath sounds are clear bilaterally, no rales rhonchi wheezes auscultated. HEART: Shows S1, S2 clear. No murmurs auscultated. ABDOMEN: Soft, nontender, nondistended, obese. No palpable organomegaly is noted. No rebound or guarding demonstrated. BACK: Shows spine grossly in the midline. Normal-appearing cervical lordotic curvature. There is slightly increased thoracic kyphosis, some minor flattening of the lumbar lordotic curvature. Lumbar paraspinous muscles show symmetrical on inspection, on palpation shows some moderate tenderness diffusely throughout the upper, middle and lower distribution of the paraspinous muscles bilaterally and also into the lower thoracic paraspinous musculature, firm and tender, but without specific trigger points, without radiation of pain. The patient has good rotational motion of the lumbar spine, both laterally as well as extension and flexion without significant difficulty. No tenderness over the spinous processes, sacrum or sacroiliac regions. EXTREMITIES: Lower extremities show deep tendon reflexes 2+ in the patellar and tendo calcaneus tendons. Motor exam is 5 on a scale of 5 with right dorsiflexion, extension, quadriceps and hamstring flexion and 4/5 on the left. Peripheral pulses are 1+ posterior tibial. No peripheral edema is noted bilaterally. Lower extremities are warm and dry to touch, equal in color and appearance. Straight leg raise noted to be negative on the right, left side is positive at approximate 40 degrees decreased with knee flexion. Gaenslen's and Brady's maneuvers are negative bilaterally. The patient is able to stand, stand on his toes without significant difficulty loss of balance walks with a slight favoring gait does appear to favor the left lower extremity mildly but not using any assistive devices to ambulate such as canes or walkers. SKIN: Shows warm and dry, good turgor. No edema. No sores, rashes or bruising throughout. IMPRESSION: Impression: 75-year-old male with 2-year history increasing pain low back left lower extremity radicular fashion following an L4-5 dermatomal distribution MRI scan lumbar spine as noted Arthritis Hearing loss Plan: Options were discussed with the patient including conservative medical management physical therapies and vaginal techniques. This patient is doing conservative therapies and stretching strengthening exercises on his own he like to pursue interventional techniques. We discussed a lumbar epidural steroid injection using description as well as anatomical models to describe the procedure. Patient will wait for preauthorization with insurance provider and once this is obtained we will plan on a translaminar L4-5 lumbar epidural steroid injection. In the meantime patient will continue with stretching strength exercises walking daily and climbing stairs daily as tolerated as well as oral anti-inflammatories. CHRIS LAURA MD Oct 15, 2020 12:23
== END | disposition home or self-care (01) ==
LOC: PNCL 11:49
PROVIDERS: ATTEND Anesthesiology
DX: M54.5 Low back pain (principal); M79.605 Pain in left leg; N40.0 Benign prostatic hyperplasia without lower urinary tract symptoms; I10 Essential (primary) hypertension; M19.90 Unspecified osteoarthritis, unspecified site; Z79.899 Other long term (current) drug therapy; Z98.890 Other specified postprocedural states; Z82.49 Family history of ischemic heart disease and other diseases of the circulatory system; Z83.3 Family history of diabetes mellitus
CPT/HCPCS: G0463

== ENCOUNTER 2021-01-29 18:46 | Emergency (ER) | payer MEDICARE, OTHER ==
[~2021-01-29] VITALS: Ht 185.4 cm; Wt 87.0 kg
[~2021-01-29 18:46] MED LIST changes: -CIPR500T PO; +CIPR500T2 PO; -LISI-334 PO; +LISI10TA16; -LISI10TA2; +LISI20TA18 PO
[2021-01-29 19:30] LABS: BASO # 0.1 x10^3/uL (0.0-0.2); BASO % 1 % (0-3); EOS # 0.3 x10^3/uL (0.0-0.7); EOS % 4 % (0-3); HEMATOCRIT 44.8 % (39.0-53.0); HEMOGLOBIN 15.2 g/dL (13.0-17.5); LYMPH # 2.8 x10^3/uL (1.0-4.8); LYMPH % 32 % (24-48); MEAN CORPUSCULAR HEMOGLOBIN 31 pg (25-35); MEAN CORPUSCULAR HGB CONC 34 g/dL (31-37); MEAN CORPUSCULAR VOLUME 91 fL (79-100); MONO % 11 % (0-9); NEUT # 4.5 x10^3/uL (1.8-7.7); NEUT % 52 % (31-73); PLATELET COUNT 268 x10^3/uL (140-400); RED BLOOD COUNT 4.91 x10^6/uL (4.30-5.70); RED CELL DISTRIBUTION WIDTH 13.7 % (11.5-14.5); WHITE BLOOD COUNT 8.8 x10^3/uL (4.0-11.0)
--- NOTE | 2021-01-29 19:41 | EKG ---
[facility] [address] [place] [address] Test Date: 2021-01-29 Test Time: 18:58:19 Pat Name: MARTHA NAIDU Department: Room: Gender: M Devil Tender: : 1945 Requested By: MERY IRVING Order Number: [id number] Reading MD: Measurements Intervals Levels Rate: 60 P: 47 AR: 190 QRS: 7 QRSD: 116 T: -24 QT: 412 QTc: 416 Interpretive Statements SINUS RHYTHM QRS(T) CONTOUR ABNORMALITY CONSISTENT WITH INFERIOR INFARCT AGE UNDETERMINED ABNORMAL ECG RI6.02 No previous ECG available for comparison
[2021-01-29 19:44] LABS: CALCIUM 8.6 mg/dL (8.5-10.1); CREATININE 1.1 mg/dL (0.7-1.3); GFR 64.9
--- NOTE | 2021-01-29 20:38 | ED.ADGEN ---
Past Medical History Past Medical History: Arthritis, Hypertension, Other Additional Past Medical Histor: ENLARGED PROSTATE; hearing impairment, VERTIGO Past Surgical History: Other Additional Past Surgical Histo: hernia; right ear Smoking Status: Never Smoker Alcohol Use: None Drug Use: None General Adult EDM: Chief Complaint: DIZZY/LIGHT HEADED HPI: HPI: Patient is a 75-year-old male who presents to the emergency room complaining of room spinning sensation. Patient states that he went to the grocery store with his today and suddenly when he was leaving felt the spinning sensation. He did have some nausea with this but has not had any vomiting. He states that he has been wobbling when he walks since this started. He states it gets much worse when he lays flat. He does have an inner ear issue but this has not caused him problems in quite some time. He did take meclizine this morning but did not realize he could take it again. He denies any numbness or weakness. He denies any other symptoms including chest pain, headache, shortness of breath, nausea, vomiting, diarrhea, abdominal pain. Review of Systems: Review of Systems: Complete ROS is negative unless otherwise documented in HPI Current Medications: Current Medications Medications (Trade) Dose Ordered Sig/Francisco Start Time Stop Time Status Last Admin Dose Admin Meclizine HCl (Antivert) 25 mg 1X ONCE 01/29/21 20:45 01/29/21 20:46 DC 01/29/21 20:53 25 MG Sodium Chloride 1,000 ml @ 1,000 mls/hr 1X ONCE 01/29/21 20:45 01/29/21 21:44 DC 01/29/21 20:53 1,000 MLS/HR Allergies: Allergies: Allergies Coded Allergies Type Severity Reaction Last Updated Verified No Known Drug Allergies 05/18/15 No Physical Exam: PE: General: Awake, alert, NAD. Well Nourished, well hydrated. Cooperative HEENT: Atraumatic, EOMI, PERRL, airway patent, moist oral mucosa Neck: Supple, trachea midline Respiratory: CTA bilaterally, normal effort, no wheezing/crackles CV: RRR, no murmur, cap refill <2 GI: Soft, nondistended, nontender, no masses MSK: No obvious deformities Skin: Warm, dry, intact Neuro: A&O x3, speech NL, sensory and motor grossly intact, no focal deficits, no cerebellar dysfunction Psych: Normal affect, normal mood, not suicidal or homicidal Current Patient Data: Labs: Laboratory Tests Test 01/29/21 19:00 01/29/21 20:40 White Blood Count 8.8 x10^3/uL (4.0-11.0) Red Blood Count 4.91 x10^6/uL (4.30-5.70) Hemoglobin 15.2 g/dL (13.0-17.5) Hematocrit 44.8 % (39.0-53.0) Mean Corpuscular Volume 91 fL (79-100) Mean Corpuscular Hemoglobin 31 pg (25-35) Mean Corpuscular Hemoglobin Concent 34 g/dL (31-37) Red Cell Distribution Width 13.7 % (11.5-14.5) Platelet Count 268 x10^3/uL (140-400) Neutrophils (%) (Auto) 52 % (31-73) Lymphocytes (%) (Auto) 32 % (24-48) Monocytes (%) (Auto) 11 % (0-9) H Eosinophils (%) (Auto) 4 % (0-3) H Basophils (%) (Auto) 1 % (0-3) Neutrophils # (Auto) 4.5 x10^3/uL (1.8-7.7) Lymphocytes # (Auto) 2.8 x10^3/uL (1.0-4.8) Monocytes # (Auto) 1.0 x10^3/uL (0.0-1.1) Eosinophils # (Auto) 0.3 x10^3/uL (0.0-0.7) Basophils # (Auto) 0.1 x10^3/uL (0.0-0.2) Sodium Level 140 mmol/L (136-145) Potassium Level 4.0 mmol/L (3.5-5.1) Chloride Level 104 mmol/L (98-107) Carbon Dioxide Level 27 mmol/L (21-32) Anion Gap 9 (6-14) Blood Urea Nitrogen 17 mg/dL (8-26) Creatinine 1.1 mg/dL (0.7-1.3) Estimated GFR (Cockcroft-Gault) 64.9 Glucose Level 106 mg/dL (70-99) H Calcium Level 8.6 mg/dL (8.5-10.1) Troponin I Quantitative < 0.017 ng/mL (0.000-0.055) Urine Collection Type Void Urine Color Yellow Urine Clarity Clear Urine pH 6.0 (<5.0-8.0) Urine Specific [place] 1.010 (1.000-1.030) Urine Protein Negative mg/dL (NEG-TRACE) Urine Glucose (UA) Negative mg/dL (NEG) Urine Ketones (Stick) Negative mg/dL (NEG) Urine Blood Negative (NEG) Urine Nitrite Negative (NEG) Urine Bilirubin Negative (NEG) Urine Urobilinogen Dipstick 0.2 mg/dL (0.2 mg/dL) Urine Leukocyte Esterase Negative (NEG) Urine RBC Rare /HPF (0-2) Urine WBC 1-4 /HPF (0-4) Urine Squamous Epithelial Cells Occ /LPF Urine Bacteria Few /HPF (0-FEW) Urine Hyaline Casts Occasional /HPF Urine Mucus Slight /LPF Laboratory Tests 01/29/21 19:00 Laboratory Tests 01/29/21 19:00 Vital Signs: Vital Signs Date Time Temp Pulse Resp B/P (MAP) Pulse Ox O2 Delivery O2 Flow Rate FiO2 01/29/21 22:21 64 178/85 (116) 98 Room Air 01/29/21 18:56 97.8 12 99.0 97.8 EKG: EKG: [] Heart Score: C/O Chest Pain: N/A Risk Factors: Risk Factors: DM, Current or recent (<one month) smoker, HTN, HLP, family history of CAD, obesity. Risk Scores: Score 0 - 3: 2.5% MACE over next 6 weeks - Discharge Home Score 4 - 6: 20.3% MACE over next 6 weeks - Admit for Clinical Observation Score 7 - 10: 72.7% MACE over next 6 weeks - Early Invasive Strategies Radiology/Procedures: Radiology/Procedures: [] Course & Med Decision Making: Course & Med Decision Making Pertinent Labs and Imaging studies reviewed. (See chart for details) Patient is a 75-year-old male with a history of vertigo who presents to the emergency room complaining of generalized weakness and dizziness. History and exam are significant for history of an inner ear issue. Given age and history differential for generalized weakness includes dehydration, electrolyte abnormalities, anemia, infection, arrhythmia, medication side effect, vertigo. At this time CBC, BMP, EKG, UA, troponin, chest x-ray were ordered to evaluate for causes of weakness. Patient given meclizine and fluids. Patient symptoms did improve. He was able to ambulate in the emergency room. Work-up is unremarkable. Patient will be discharged home will return to the emergency room if his symptoms worsen. Patient's test results and vitals while in the ED were fully reviewed and discussed with the patient. Patient is stable and at this time does not need admission to the hospital. We have discussed strict return precautions and the importance of following up with their Primary Care Physician. Patient stated understanding and was given an opportunity to ask any questions. Patient is in agreement with plan. Dragon Disclaimer: Dragon Disclaimer: This electronic medical record was generated, in whole or in part, using a voice recognition dictation system. Departure Departure Impression: Primary Impression: Vertigo Disposition: HOME / SELF CARE / HOMELESS Condition: STABLE Referrals: DARRIUS VERONICA MD (PCP) Patient Instructions: Benign Positional Vertigo MERY IRVING MD Jan 29, 2021 20:38
[2021-01-29 20:50] LABS: BILIRUBIN,URINE NEGATIVE (NEG); CLARITY,URINE CLEAR; COLOR,URINE YELLOW; NITRITE,URINE NEGATIVE (NEG); PROTEIN,URINE NEGATIVE (NEG-TRACE); UROBILINOGEN,URINE 0.2 mg/dL (0.2 mg/dL)
[2021-01-29] MEDS: MECLIZINE HCL 12.5 MG TABLET. PO ONE (20:53)
[2021-01-29] MEDS: IV NORMAL SALINE 1000ML BAG 1,000 ML IV ONE (20:53)
--- NOTE | 2021-01-29 20:55 | RAD ---
EXAM: CHEST 2 VIEWS. HISTORY: Dizziness. COMPARISON: 04/28/2015. FINDINGS: Frontal and lateral views of the chest are obtained. Linear opacities in the bases appear chronic and likely reflects scarring. There is no pneumothorax o r pleural effusion. The heart is not enlarged. The aorta is calcified and tortuous. There is a mild t horacic dextroscoliosis. IMPRESSION: 1. Mild basilar scarring. No confluent infiltrates. Electronically signed by: Kashif Vasquez MD (01/29/2021 8:52 PM) [facility]
[2021-01-29 21:07] LABS: BACTERIA,URINE FEW /HPF (0-FEW); HYALINE CASTS, URINE OCCASIONAL /HPF
[2021-01-29 21:08] LABS: RBC,URINE RARE /HPF (0-2)
[2021-01-29 22:21] VITALS: BP 178/85
== END 2021-01-29 23:03 | disposition home or self-care (01) ==
LOC: ER 18:46
DX: R42 Dizziness and giddiness (principal); R11.0 Nausea; I10 Essential (primary) hypertension
CPT/HCPCS: 36415; 71046; 80048; 81001; 84484; 85025; 93005; 96360; 99285; J7030; J8597

== ENCOUNTER 2021-09-08 20:11 | Emergency (ER) | payer MEDICARE ==
[~2021-09-08] VITALS: Ht 182.9 cm; Wt 86.3 kg
[2021-09-08 20:43] VITALS: BP 159/79
[2021-09-08] MEDS ORDERED: AMOX875T PO (20:53)
--- NOTE | 2021-09-08 20:53 | PHYS DOC ---
Past Medical History Past Medical History: Arthritis, Hypertension, Other Additional Past Medical Histor: ENLARGED PROSTATE; hearing impairment, VERTIGO Past Surgical History: Other Additional Past Surgical Histo: hernia; right ear Smoking Status: Never Smoker Alcohol Use: None Drug Use: None General Adult HPI: HPI: Is a 76-year-old male who presents to the emergency department for complaints of left ear pain and decreased hearing. Patient reports that he was seen at [facility] 3 days ago and was diagnosed with an ear infection and discharged home with ofloxacin drops. He reports a history of hearing loss on his right ear that is been present for 5 years. Patient denies any nasal congestion or drainage, coughing, fevers, trauma, sore throat. Review of Systems: Review of Systems: Constitutional: See HPI HENT: See HPI Respiratory: See HPI Heart Score: C/O Chest Pain: N/A Risk Factors: Risk Factors: DM, Current or recent (<one month) smoker, HTN, HLP, family history of CAD, obesity. Risk Scores: Score 0 - 3: 2.5% MACE over next 6 weeks - Discharge Home Score 4 - 6: 20.3% MACE over next 6 weeks - Admit for Clinical Observation Score 7 - 10: 72.7% MACE over next 6 weeks - Early Invasive Strategies Allergies: Allergies: Allergies Coded Allergies Type Severity Reaction Last Updated Verified No Known Drug Allergies 05/18/15 No Physical Exam: PE: Constitutional: Well developed, well nourished, no acute distress, non-toxic appearance. [] HENT: Normocephalic, atraumatic, bilateral external ears normal, left ear canal has swelling and mild erythema, right ear has dull TM and debris's. Hard of hearing, oropharynx moist, no oral exudates, nose normal. [] Eyes: PERRL, EOMI, conjunctiva normal, no discharge. [] Neck: Normal range of motion, no tenderness, supple, no stridor. [] Cardiovascular:Heart rate regular rhythm, no murmur [] Lungs & Thorax: Bilateral breath sounds clear to auscultation [] Abdomen: Bowel sounds normal, soft, no tenderness, no masses, no pulsatile masses. [] Skin: Warm, dry, no erythema, no rash. [] Back: Normal range of motion Extremities: No tenderness, no cyanosis, no clubbing, ROM intact, no edema. [] Neurologic: Alert and oriented X 3, normal motor function, normal sensory function, no focal deficits noted. [] Psychologic: Affect normal, judgement normal, mood normal. [] EKG: EKG: [] Radiology/Procedures: Radiology/Procedures: [] Course & Med Decision Making: Course & Med Decision Making Pertinent Labs and Imaging studies reviewed. (See chart for details) [] Patient presents to the emergency department for left ear pain and decreased hearing that started 3 days ago. Patient was diagnosed with an ear infection at [facility] 3 days ago and was treated with ofloxacin drops. Patient's left ear canal has swelling and his tympanic membrane is erythematous. Patient will be treated with an antibiotic for his ear infection. Patient had no trauma and has no other symptoms such as nasal congestion, cough, fever, sore throat. His vital signs are stable and he is in no acute distress. Refer to ENT if symptoms continue. I discussed with patient all findings and diagnostic testing as well as the need to follow-up with PCP for further evaluation and treatment or return to the ER if any new or worsening symptoms. Strict return precautions were also discussed at length. Patient voiced understanding and agreement with the plan. Patient is hemodynamically stable at the time of disposition. Dragon Disclaimer: [employer] Disclaimer: This electronic medical record was generated, in whole or in part, using a voice recognition dictation system. Departure Departure Impression: Primary Impression: Otitis media Disposition: 01 HOME / SELF CARE / HOMELESS Condition: GOOD Referrals: DARRIUS VERONICA MD (PCP) Patient Instructions: Otitis Media, Adult Additional Instructions: You are seen in the emergency department for left ear pain and decreased hearing . It appears that you have an infection of your left ear. This will be treated with an antibiotic. Please start and finish the antibiotic completely. For your pain you can take Tylenol or ibuprofen. Please follow-up with your primary care provider. If your symptoms persist you may need to follow-up with an ENT. You can contact Dr. Berry who is an ENT in the area by calling [phone] if you need to follow-up. Please return to the emergency department if you develop worsening of your pain, high fevers refractory to treatment, intractable nausea vomiting, severe head pain or worsening of your hearing loss. Scripts Amoxicillin (AMOXICILLIN) 875 Mg Tablet 1 TAB PO BID for otitis media for 2 Days, #4 TAB 0 Refills Prov: BRET MERAZ APRN 09/08/21 BRET MERAZ APRN Sep 08, 2021 20:53
== END 2021-09-08 21:21 | disposition home or self-care (01) ==
LOC: ER 20:11
DX: H66.92 Otitis media, unspecified, left ear (principal); I10 Essential (primary) hypertension
CPT/HCPCS: 99281